=== PATIENT | female | born 1970 | race African-American/Black ===

== ENCOUNTER 2021-07-28 15:37 | Emergency (ER) | payer OTHER, SELFPAY ==
--- NOTE | ~2021-07-28 | XR_ITS ---
EXAMINATION: XR chest 2V DATE: 07/28/2021 17:27 INDICATION: Shortness of breath and cough TECHNIQUE: PA and lateral views of the chest are obtained. COMPARISON: 10/30/2014 FINDINGS: The lungs are free of acute opacities. There is no pleural effusion or pneumothorax. The ca rdiomediastinal silhouette is normal. There is mild thoracic spondylosis. IMPRESSION: 1. No acute cardiopulmonary abnormality. Reviewed, dictated and finalized at location F. TION COUNSELOR
[2021-07-28 16:39] VITALS: BP 136/93; PULSE 99; RESP 16; TEMP 36.3; O2SAT 100
--- NOTE | 2021-07-28 16:59 | ED.URI ---
HPI - URI/Sore Throat General Chief Complaint: Upper Respiratory Infection Stated Complaint: cough/cp Source: patient Mode of arrival: ambulatory Limitations: no limitations History of Present Illness HPI Narrative: 51 y/o female presented for c/o body aches, fatigue, fever, painful cough and sinus congestion worsening over the past week. She is not vaccinated for COVID and endorses several sick contacts with COVID. Has been taking Aleve and Tylenol for symptoms. Denies palpitations, sob, dizziness, nausea, vomiting, diaphoresis. Related Data Allergies Allergy/AdvReac Type Severity Reaction Status Date / Time No Known Allergies Allergy Verified 03/13/17 11:34 Review of Systems Review of Systems: CONSTITUTIONAL: Endorses malaise, chills, sweats, fever. EYES: Denies visual changes, redness, or discharge. ENT: Reports rhinorrhea, congestion, sinus pain, otalgia and sore throat. CARDIOVASCULAR: Denies chest pain, palpitations, or edema. RESPIRATORY: Reports cough, post nasal drainage. Denies dyspnea. GASTROINTESTINAL: Denies abdominal pain, nausea, vomiting, diarrhea SKIN: Denies rash or itching. MUSCULOSKELETAL: Denies myalgia. NEUROLOGIC: Denies headache. [facility] Comments At time of signature, I have reviewed and agree with nursing past medical, surgical, social and family history unless otherwise noted. Please see nursing chart for further information. There is no relevant family history pertinent to the presenting complaint Exam Narrative: GENERAL: Ill-appearing, no acute distress. HEAD: Normocephalic EYES: PERRLA, conjunctivae clear ENT: Mucous membranes moist. TM pearly walker with dull light reflex bilaterally; no tragal tenderness. Oropharynx erythematous without lesions. Tonsils enlarged and without exudate, no drooling, no hoarseness, no trismus, uvula midline. NECK: Supple. No lymphadenopathy CHEST: diminished to auscultation, breath sounds equal. wheeze right posterior lower lobe, no rhonchi, rales, or stridor. No respiratory distress, speaks in full sentences. HEART: Regular rate and rhythm. No murmur heard. SKIN: Warm, dry, no rash. NEURO: Alert and oriented x3. PSYCH: Normal mood and affect Course Course Emergency Course: PCR ordered CXR neg Patient is aware of diagnosis, understands and agrees to treatment plan. Anticipatory guidance given. Patient agrees to follow-up as directed and is aware of reasons to seek care at the emergency department. Portions of this record may have been created with voice recognition software Level of Care: Express Care Visit Vital Signs Vital signs: Vital Signs Temperature 97.3 F L 07/28/21 16:39 Pulse Rate 99 07/28/21 16:39 Respiratory Rate 16 07/28/21 16:39 Blood Pressure 136/93 H 07/28/21 16:39 Pulse Oximetry 100 07/28/21 16:39 Temperature 97.3 F L 07/28/21 16:39 Pulse Rate 99 07/28/21 16:39 Respiratory Rate 16 07/28/21 16:39 Blood Pressure 136/93 H 07/28/21 16:39 Pulse Oximetry 100 07/28/21 16:39 MDM - URI/Sore Throat Differential Diagnosis Differential diagnosis: Likely upper respiratory infection, sinusitis, viral infection and influenza Imaging Data Attestation: I personally reviewed and interpreted this imaging study as follows: My impression: No acute cardiopulmonary abnormality. Radiologist's impression: EXAMINATION: XR chest 2V DATE: 07/28/2021 17:27 INDICATION: Shortness of breath and cough TECHNIQUE: PA and lateral views of the chest are obtained. COMPARISON: 10/30/2014 FINDINGS: The lungs are free of acute opacities. There is no pleural effusion or pneumothorax. The cardiomediastinal silhouette is normal. There is mild thoracic spondylosis. Discharge Plan Discharge Clinical Impression: Viral infection Patient Disposition: Home, Self-Care Condition: Stable Instructions: Antibiotic Form, COVID-19 (Coronavirus Disease 2019) (ED) Additional Instructions: Chest xray was normal You were tested fo
[2021-07-30 21:18] LABS: SARS-CoV-2 RNA PCR Positive
--- NOTE | 2021-08-01 10:54 | PC.NURSE ---
called and requested printed positive covid result and aware will be available at [facility].
== END 2021-07-28 18:23 | disposition home or self-care (01) ==
PROVIDERS: Emergency Provider Nurse Practitioner Family
DX: U07.1 COVID-19 (principal)
CPT/HCPCS: 71046; 99213; C9803; G0463; U0003; U0005

== ENCOUNTER 2021-12-22 15:44 | Outpatient (CLI) | payer OTHER, SELFPAY ==
[2021-12-22 16:17] LABS: Hematocrit 37.6 % (37.0-47.0); Mean Corpuscular HGB Conc 31.9 g/dl (32-36); Mean Corpuscular Hemoglobin 29.1 pg (26-34); Mean Platelet Volume 11.4 fl (7.4-10.4); Platelet Count Result 217 k/mm3 (150-375); Red Blood Count 4.13 M/mm3 (4.2-5.4); Red Cell Distribution Width 13.9 % (11.5-14.5); White Blood Count 4.5 K/mm3 (4.5-10.0)
[2021-12-22 16:25] LABS: Hemoglobin A1C 13.8 % (<5.7)
[2021-12-22 16:30] LABS: Alanine Aminotransferase 19 U/L (6-35); Albumin Level 4.3 g/dL (3.5-5.1); Alkaline Phosphatase 73 U/L (38-126); Anion Gap 5 mmol/L (8-16); Aspartate Amino Transferase 24 U/L (14-36); Bilirubin,Total 0.6 mg/dL (0.2-1.3); Blood Urea Nitrogen 13 mg/dL (7-17); Calcium 8.8 mg/dL (8.4-10.2); Carbon Dioxide 27 mmol/L (22-30); Chloride 96 mmol/L (98-107); Cholesterol 117 mg/dL (0-200); Estimated Glomerular Filt Rate > 60; Glucose 391 mg/dL (65-110); HDL Direct 46 mg/dL; Potassium 4.5 mmol/L (3.4-5.0); Sodium 128 mmol/L (137-145); Triglycerides 157 mg/dL (<150)
[2021-12-22 16:43] LABS: LDL Cholesterol Direct 37 mg/dL
[2021-12-22 17:00] LABS: Thyroid Stimulating Hormone 0.727 uIU/mL (0.465-4.680)
[2021-12-22 17:03] LABS: Vitamin D 25 Hydroxy 47.9 ng/mL
[2021-12-22 17:25] LABS: Vitamin B12 > 1000.0 pg/mL (239-931)
== END 2021-12-22 15:45 | disposition home or self-care (01) ==
LOC: ANHLAB 15:46
PROVIDERS: Visit Provider Obstetrics & Gynecology Gynecology
DX: Z01.419 Encounter for gynecological examination (general) (routine) without abnormal findings (principal)
CPT/HCPCS: 36415; 80053; 80061; 82306; 82607; 83036; 84443; 85027

== ENCOUNTER 2022-04-21 06:34 | Outpatient (RCR) | payer OTHER, SELFPAY | END 2022-07-08 11:34 | disposition home or self-care (01) | LOC: ANHDMC 06:34 | PROVIDERS: Visit Provider Nurse Practitioner | DX: E11.65 Type 2 diabetes mellitus with hyperglycemia (principal) | CPT/HCPCS: 99199 ==

== ENCOUNTER 2022-11-15 17:35 | Emergency (ER) | payer BC, SELFPAY ==
--- NOTE | ~2022-11-15 | CT_ITS ---
EXAMINATION: CT abdomen pelvis w con INDICATION: Epigastric abdominal pain TECHNIQUE: Computed tomographic images of the abdomen and pelvis were obtained after the administrati on of 100 cc of Omnipaque 350 intravenous contrast. The dose-length product (DLP) was 467.82 mGy-cm. Automated exposure control and iterative reconstruction technique were employed. COMPARISON: None available FINDINGS: The lung bases are clear. The heart size is normal. The liver, spleen, pancreas, gallbladde r, and adrenal glands are normal. There is wall thickening of the stomach. Cysts of the kidneys measu re up to 1.4 cm on the right. No pathologically enlarged abdominal or pelvic lymph nodes are identifi ed. No free intraperitoneal gas or evidence of bowel obstruction. There is severe lumbar spondylosis at L5-S1. There is circumferential wall thickening of the urinary bladder. IMPRESSION: 1. Wall thickening of the stomach which could reflect gastritis. 2. Wall thickening of the urinary bladder which could reflect cystitis. Reviewed, dictated and finalized at location F.
[2022-11-15 17:38] VITALS: BP 137/89; PULSE 59; RESP 20; TEMP 37.3; O2SAT 100
--- NOTE | 2022-11-15 17:52 | ED.NAVMDI ---
HPI - Nausea/Vomiting/Diarrhea General Chief complaint: Nausea/Vomiting/Diarrhea Stated complaint: n/v Time Seen by Provider: 11/15/22 17:46 History of Present Illness HPI Narrative: Patient is a 52-year-old female with history of diabetes here via EMS for evaluation of nausea, vomiting and diarrhea over the past day. Patient states that she woke up this morning feeling ill and has had a discomfort in her epigastric region since waking up. She has had numerous episodes of vomiting nonbloody/nonbilious emesis and has been unable to tolerate any p.o. She also reports about 5 episodes of loose watery stools. She does admit to marijuana and alcohol use last evening but denies any history of adverse reaction to either. She is a type II diabetic but does not take any medicines. Denies new or suspicious foods, sick contacts at home. She received 4 of Zofran in route with relief of her nausea. History of appendectomy. Related Data Allergies Allergy/AdvReac Type Severity Reaction Status Date / Time No Known Allergies Allergy Verified 11/15/22 17:44 Review of Systems Review of Systems: Gen.: Reports chills Eyes: Denies eye pain or visual change ENT: Denies congestion Respiratory: Denies shortness of breath or cough CV: Denies chest pain or palpitations GI: Reports abdominal pain, nausea, vomiting and diarrhea denies burning, urgency, frequency or hematuria Musculoskeletal: Denies back pain or muscle pain Neuro: Denies numbness, tingling, weakness or focal weakness Skin: Denies rash Except as documented, all other systems reviewed and negative Exam Narrative: APPEARANCE: Uncomfortable appearing. Head: Normocephalic and atraumatic. EYES: PERRLA/EOMI, conjunctivae clear NOSE: No nasal drainage EARS: External ear normal in appearance THROAT: Oropharynx is clear. Mucous membranes are moist. NECK: Supple. No adenopathy, no masses. RESPIRATORY: Airway patent, respirations nonlabored. Clear to auscultation bilaterally, no rales, rhonchi, wheezing. CARDIOVASCULAR: Regular rate and rhythm without murmurs, rubs, or gallops. ABDOMINAL: There is tenderness to palpation in the epigastric region without rebound tenderness or guarding. Normoactive bowel sounds. Soft, nondistended. MUSCULOSKELETAL: Extremities are warm and well-perfused. Moves all extremities well. No edema. NEURO: Normal speech. No focal neurologic deficits. SKIN: Skin is warm and dry. No rashes. PSYCHIATRIC: Normal affect/mood. Course Vital Signs Vital signs: Vital Signs Temperature 99.1 F 11/15/22 17:38 Pulse Rate 59 L 11/15/22 17:38 Respiratory Rate 20 11/15/22 17:38 Blood Pressure 137/89 11/15/22 17:38 Pulse Oximetry 100 11/15/22 17:38 Oxygen Delivery Room Air 11/15/22 17:38 Temperature 98 F 11/15/22 22:46 Pulse Rate 77 11/15/22 22:46 Respiratory Rate 18 11/15/22 22:46 Blood Pressure 151/79 H 11/15/22 22:46 Pulse Oximetry 99 11/15/22 22:46 Oxygen Delivery Room Air 11/15/22 17:38 MDM - Nausea/Vomiting/Diarrhea MDM Narrative Medical decision making narrative: 52-year-old female with a history of diabetes, not currently on any medicine, here for evaluation of nausea vomiting and abdominal pain over the past day. Admits to alcohol use and marijuana use yesterday. She is uncomfortable in appearance and does have some tenderness to palpation in the epigastric region without rebound or guarding. Her vital signs are normal. Nkepo-ce-maok glucose upon arrival is 248. Patient's basic labs unremarkable. Her bicarb is slightly low at 19.4 but her pH is normal at 7.38. Anion gap is 15. 4+ ketones in the urine, likely due to dehydration. CT abdomen pelvis reveals findings that likely 2/2 gastritis and cystitis. Patient was given fluids, antiemetics and pain medicine with improvement of her symptoms. Able to tolerate p.o. Recheck gkeba-tq-[id number] glucose is 183 upon d/c. Not consistent with DKA or HHS. Will send ho
[2022-11-15 17:54] LABS: Glucose Point of Care 242 mg/dl (65-105)
[2022-11-15] MEDS: FAMOTIDINE 20 MG/2 ML VIAL IV PUSH (18:37)
[2022-11-15] MEDS: SODIUM CHLORIDE 0.9% IV 1,000 ML 999 ML IV CONT ×2 (18:37→20:14)
[2022-11-15] MEDS: diphenhydrAMINE HCl INJ 50 MG/ML VIAL 25 MG IV PUSH (18:46)
[2022-11-15] MEDS: METOCLOPRAMIDE HCL INJ 10 MG/2 ML VIAL IV PUSH (18:46)
[2022-11-15 18:53] VITALS: BP 144/84; PULSE 68; RESP 20; O2SAT 96
[2022-11-15 19:08] LABS: Basophils Absolute Auto 0.1 K/mm3 (0.0-0.1); Basophils Percent Auto 0.8 % (0.2-1.2); Hematocrit 37.3 % (37.0-47.0); Hemoglobin 11.9 g/dL (12.0-15.0); Immature Granulocyte Absolute 0.01 K/mm3 (0.00-0.031); Immature Granulocyte Percent A 0.2 % (0-0.5); Lymphocytes Absolute Auto 0.39 K/mm3 (0.9-3.2); Lymphocytes Percent Auto 5.9 % (18.3-44.2); Mean Corpuscular HGB Conc 31.9 g/dl (32-36); Mean Corpuscular Hemoglobin 30.1 pg (26-34); Mean Corpuscular Volume 94.4 fl (80-100); Monocytes Absolute Auto 0.2 K/mm3 (0.1-0.6); Monocytes Percent Auto 2.6 % (2.6-8.5); Neutrophils Percent Auto 90.5 % (45.5-73.1); Platelet Count Result 223 k/mm3 (150-375); Red Blood Count 3.95 M/mm3 (4.2-5.4); Red Cell Distribution Width 12.6 % (11.5-14.5); White Blood Count 6.6 K/mm3 (4.5-10.0)
[2022-11-15 19:17] LABS: Alanine Aminotransferase 32 U/L (6-35); Albumin Level 4.7 g/dL (3.5-5.1); Alkaline Phosphatase 70 U/L (38-126); Anion Gap 15 mmol/L (8-16); Aspartate Amino Transferase 31 U/L (14-36); Bilirubin,Total 0.7 mg/dL (0.2-1.3); Blood Urea Nitrogen 7 mg/dL (7-17); Calcium 8.8 mg/dL (8.4-10.2); Carbon Dioxide 23 mmol/L (22-30); Chloride 103 mmol/L (98-107); Estimated CRCL calculation 124 ml/min; Estimated Glomerular Filt Rate > 60; Glucose 248 mg/dL (65-110); Lipase 79 U/L (23-300); Potassium 3.6 mmol/L (3.4-5.0); Sodium 141 mmol/L (137-145)
[2022-11-15 20:03] LABS: Appearance Urine Clear (Clear); Bacteria Urine 4+ /hpf; Bilirubin Urine Negative (Negative); Blood Urine Negative (Negative); Color Urine Yellow (Yellow); Glucose Urine UA 2+ mg/dL (Negative); Ketones Urine 4+ mg/dL (Negative); Leukocyte Esterase Ur Negative LEU/UL (Negative); Nitrate Urine Positive (Negative); Non Pathogenic Casts 0-2; Protein Urine Negative (Negative); RBC Urine 0-2 /hpf (0-2); Specific Grav Ur 1.025 (1.001-1.035); Squamous Epithelial Cell Urine None seen /hpf (Few); Urobilinogen Urine 0.2 mg/dL (<2.0); WBC Urine 0-5 /hpf
[2022-11-15 20:05] LABS: Add Urine Microscopic? YES
[2022-11-15] MEDS: ONDANSETRON INJ 4 MG/2 ML VIAL IV PUSH (20:44)
[2022-11-15] MEDS: DICYCLOMINE HCL INJ 20 MG/2 ML VIAL IM (20:44)
[2022-11-15 21:28] VITALS: BP 151/77; PULSE 77; RESP 18; TEMP 36.6; O2SAT 99
[2022-11-15 22:04] LABS: Glucose Point of Care 183 mg/dl (65-105)
[2022-11-15 22:11] LABS: Device ROOM AIR; Fractional Inspired Oxygen 21 %; HCO3 VBG 19.4 mEq/l (24.0-30.0); PCO2 VBG 33.3 mmHg (42.0-48.0); PO2 VBG 145.2 mmHg (35.0-45.0); pH VBG 7.384 (7.300-7.400)
[2022-11-15] MEDS: HALOPERIDOL LACTATE 5 MG/ML VIAL IV PUSH (22:18)
[2022-11-15] MEDS: diphenhydrAMINE HCl INJ 50 MG/ML VIAL 12.5 MG IV PUSH (22:18)
[2022-11-15 22:46] VITALS: BP 151/79; PULSE 77; RESP 18; TEMP 36.6; O2SAT 99
--- NOTE | 2022-11-15 22:46 | PC.NURSE ---
PO challenge started at 2229. 2245: pt tolerated PO challenge. Provider aware. Pt OK to be d/c.
== END 2022-11-15 22:48 | disposition home or self-care (01) ==
PROVIDERS: Emergency Provider Physician Assistant
DX: N39.0 Urinary tract infection, site not specified (principal); K29.70 Gastritis, unspecified, without bleeding
CPT/HCPCS: 36415; 74177; 80053; 81001; 81025; 82803; 82948; 83690; 85025; 96361; 96372; 96374; 96375; 96376; 99284; J0500; J1200; J1630; J2405; J2765; J7030; Q9967

== ENCOUNTER 2023-04-16 17:46 | Emergency (ER) | payer BC, SELFPAY ==
[2023-04-16 17:58] VITALS: BP 124/81; PULSE 74; RESP 16; TEMP 36.6; O2SAT 100
[2023-04-16 17:59] LABS: Glucose Point of Care 436 mg/dl (65-105)
--- NOTE | 2023-04-16 18:06 | ED.GENADULT ---
HPI - General Adult General Chief complaint: Dizziness Stated complaint: blood sugar issue,sick to stomach,blurred vision Time Seen by Provider: 04/16/23 18:00 Source: patient and RN notes reviewed Mode of arrival: ambulatory Limitations: no limitations History of Present Illness HPI narrative: Patient presents today complaining of elevated blood sugar. Reports around noon today her blood sugar was 403. She is also complaining of a one-week history of midline test tightness and constant blurred vision. Associated symptoms include intermittent dizziness, tingling in her left hand, nausea, and 5/10 abdominal pain. Patient does have type 2 diabetes but is not currently take any medication to control it. States she is supposed to be taking metformin, but reports it causes nausea. Patient is continuing to drive with her blurred vision. Related Data Home Medications Medication Instructions Recorded Confirmed No Home Medications 04/16/23 04/16/23 Allergies Allergy/AdvReac Type Severity Reaction Status Date / Time No Known Allergies Allergy Verified 04/16/23 17:50 Review of Systems Review of Systems: CONSTITUTIONAL: Denies body aches, fever, chills, or sweats. EYES: Denies visual changes, redness, or discharge.+ blurred vision ENT: Denies rhinorrhea, congestion, sore throat, or otalgia. CARDIOVASCULAR: Denies palpitations, or edema.+ chest tightness RESPIRATORY: Denies cough or dyspnea. GASTROINTESTINAL: + nausea, abdominal pain GENITOURINARY: Denies dysuria or hematuria. SKIN: Denies rash, itching, or wounds. MUSCULOSKELETAL: Denies back pain, joint pain, or myalgia. NEUROLOGIC: Denies headache, numbness, or weakness.+ tingling in the left hand, intermittent dizziness PSYCH: Denies depression or anxiety. [facility] Past Medical History Medical History (Updated 04/16/23 @ 18:12 by Mabel Cox, [facility], ) Type 2 diabetes mellitus Comments At time of signature, I have reviewed and agree with nursing past medical, surgical, social and family history unless otherwise noted. Please see nursing chart for further information. There is no relevant family history pertinent to the presenting complaint Exam Narrative: GENERAL: Well-appearing, well-nourished, and in no acute distress. HEAD: Normocephalic, atraumatic. EYES: EOMI. PERRL. No redness or drainage. Conjunctivae normal. ENT: Mucous membranes pink and moist. Nares clear. No rhinorrhea. TMs normal bilaterally. Throat normal. Uvula midline. NECK: Normal AROM. Supple. No lymphadenopathy. CHEST: No respiratory distress. Clear to auscultation. HEART: Regular rate and rhythm. No murmur appreciated. Normal peripheral pulses. ABDOMEN: Soft, nondistended, normal active bowel sounds. Generalized abdominal tenderness without rebound or guarding. EXTREMITIES: Normal range of motion. No edema. SKIN: Warm, dry, no rash. Capillary refill normal. Normal skin turgor. NEURO: No focal deficits. Alert and oriented x3. Gait steady. PSYCH: Normal affect. No signs of depression or anxiety. Course Course Level of Care: Express Care Visit Vital Signs Vital signs: Vital Signs Temperature 97.9 F 04/16/23 17:58 Pulse Rate 74 04/16/23 17:58 Respiratory Rate 16 04/16/23 17:58 Blood Pressure 124/81 04/16/23 17:58 Pulse Oximetry 100 04/16/23 17:58 Oxygen Delivery Room Air 04/16/23 17:58 Temperature 97.9 F 04/16/23 17:58 Pulse Rate 74 04/16/23 17:58 Respiratory Rate 16 04/16/23 17:58 Blood Pressure 124/81 04/16/23 17:58 Pulse Oximetry 100 04/16/23 17:58 Oxygen Delivery Room Air 04/16/23 17:58 Reviewed Transfer Transfered to: [facility] Transportation: Other (Private vehicle) Transfer rationale: Hyperglycemia, blurred vision, abdominal pain Accepting physician: Lucrecia Medical Decision Making [facility] Narrative Medical decision making narrative: Report given to Dr. Singer at [facility]. Patient transferred for fu
== END 2023-04-16 18:08 | disposition short-term general hospital (02) ==
PROVIDERS: Emergency Provider Nurse Practitioner; PCP Family Medicine
DX: E11.65 Type 2 diabetes mellitus with hyperglycemia (principal); R10.84 Generalized abdominal pain; H53.8 Other visual disturbances
CPT/HCPCS: 82948; 93005; 99213; G0463

== ENCOUNTER 2023-04-16 18:21 | Emergency (ER) | payer BC, SELFPAY ==
[2023-04-16] VITALS (8 sets, daily range): BP systolic 130–140; BP diastolic 87–96; PULSE 71–91; RESP 13–21; TEMP 36.8; O2SAT 99–100
--- NOTE | ~2023-04-16 | XR_ITS ---
EXAMINATION: XR chest 2V DATE: 04/16/2023 21:13 INDICATION: Chest tightness TECHNIQUE: PA and lateral views of the chest are obtained. COMPARISON: 07/28/2021 FINDINGS: The lungs are free of acute opacities. No pleural effusion or pneumothorax. The cardiomedia stinal silhouette is normal. There is mild thoracic spondylosis. IMPRESSION: 1. No acute cardiopulmonary abnormality. Reviewed, dictated and finalized at location F.
--- NOTE | 2023-04-16 18:30 | ECG_ITS ---
Rate HI QRSd QT QTc P QRS T Severity 71 167 81 361 392 53 62 48 Abnormal ECG SINUS RHYTHM BASELINE ARTIFACT- V2 NORMAL ECG NO PREVIOUS ECG AVAILABLE FOR COMPARISON Electronically Signed On 04-16-2023 20:12:31 CDT by Vivek GIRALDO
[2023-04-16 18:35] LABS: Glucose Point of Care 392 mg/dl (65-105)
--- NOTE | 2023-04-16 20:23 | ED.RECABL ---
HPI - Recheck/Abnormal Lab/Rx General Chief Complaint: Recheck/Abnormal Lab/Rx Stated Complaint: high blood sugar Time Seen by Provider: 04/16/23 20:11 History of Present Illness HPI narrative: Patient is a 52-year-old female presenting with hyperglycemia. States that she has a history of diabetes and was at one time on metformin but it caused a lot of GI distress so she has stopped taking it. She was having some upper abdominal pain today and checked her blood sugar and it was in the 400s so she became concerned. States that its been in the 300s before but she is never seen it in the 400s. States that she has had some intermittent chest tightness as well. She denies any current pain. States that she made an appointment with a new PCP but she cannot get in for several weeks. She was seen in urgent care today who advised that she come to the ER. States that she has noticed increased urinary frequency but no dysuria or hematuria. No numbness or weakness, fevers, headache, shortness of breath, nausea or vomiting, diarrhea, leg swelling. Related Data Allergies Allergy/AdvReac Type Severity Reaction Status Date / Time No Known Allergies Allergy Verified 04/16/23 18:21 Review of Systems Review of Systems: All systems reviewed & are unremarkable except as noted in HPI and below PMFSH Past Medical History Medical History Type 2 diabetes mellitus Exam Narrative: GENERAL: Well-appearing and in no acute distress. Pleasant and cooperative HEAD: Normocephalic, atraumatic. EYES: PERRLA and EOMI. ENT: Mucous membranes moist. NECK: Supple. CHEST: Clear to auscultation. No respiratory distress. HEART: Regular rate and rhythm. ABDOMEN: Soft, nontender, nondistended EXTREMITIES: Normal range of motion. No edema. SKIN: Warm, dry, no rash. NEURO: No focal deficits. Alert and oriented x3. PSYCH: Normal mood and affect. Course Vital Signs Vital signs: Vital Signs Temperature 98.2 F 04/16/23 18:23 Pulse Rate 75 04/16/23 18:23 Respiratory Rate 18 04/16/23 18:23 Blood Pressure 139/87 04/16/23 18:23 Pulse Oximetry 100 04/16/23 18:23 Temperature 98.2 F 04/16/23 18:23 Pulse Rate 71 04/16/23 22:14 Respiratory Rate 17 04/16/23 22:14 Blood Pressure 140/96 H 04/16/23 22:14 Pulse Oximetry 100 04/16/23 22:14 Oxygen Delivery Room Air 04/16/23 19:50 MDM - Recheck/Abnormal Lab/Rx MDM Narrative Medical decision making narrative: 52-year-old female presenting with hyperglycemia. Vitals are stable. Exam unremarkable. EKG per my interpretation shows normal sinus rhythm, normal axis and intervals, no ST elevations or depressions. Blood work with mild leukopenia. Glucose is in the 300s. There is no evidence of DKA. UA is concerning for UTI. Patient was given a dose of Keflex. Feel that the patient is safe for outpatient management. She has an appointment with primary care in the next few weeks. Strongly advised that she keep this appointment. Appropriate return precautions given. Patient voiced understanding and is agreeable with plan. Discharged in stable condition. Differential Diagnosis Differential diagnosis: Likely other (Hyperglycemia, UTI, pneumonia, dehydration, NICKY) Medical Records Attestation: I reviewed the patient's medical records. Lab Data Attestation: I reviewed the patient's lab results. 04/16/23 20:44 04/16/23 20:45 Labs: Lab Results 04/16/23 04/16/23 04/16/23 Range/Units 18:26 20:44 20:45 WBC 2.7 L (4.5-10.0) K/mm3 RBC 4.43 (4.2-5.4) M/mm3 Hgb 14.3 (12.0-15.0) g/dL Hct 42.1 (37.0-47.0) % MCV 95.0 (80-100) fl MCH 32.3 (26-34) pg MCHC 34.0 (32-36) g/dl RDW 11.7 (11.5-14.5) % Plt Count 189 (150-375) k/mm3 MPV 12.0 H (7.4-10.4) fl Immature Gran % (Auto) 0.0 (0-0.5) % Neut % (Auto) 56.9 (45.5-73.1) % Lymph % (Au
[2023-04-16 20:51] LABS: Basophils Percent Auto 1.5 % (0.2-1.2); Eosinophils Absolute Auto 0.1 K/mm3 (0-0.3); Eosinophils Percent Auto 4.4 % (0-4.4); Hematocrit 42.1 % (37.0-47.0); Hemoglobin 14.3 g/dL (12.0-15.0); Lymphocytes Absolute Auto 0.83 K/mm3 (0.9-3.2); Lymphocytes Percent Auto 30.6 % (18.3-44.2); Mean Corpuscular Hemoglobin 32.3 pg (26-34); Monocytes Absolute Auto 0.2 K/mm3 (0.1-0.6); Monocytes Percent Auto 6.6 % (2.6-8.5); Neutrophils Absolute Auto 1.5 K/mm3 (1.3-6.7); Neutrophils Percent Auto 56.9 % (45.5-73.1); Platelet Count Result 189 k/mm3 (150-375); Red Blood Count 4.43 M/mm3 (4.2-5.4); Red Cell Distribution Width 11.7 % (11.5-14.5); White Blood Count 2.7 K/mm3 (4.5-10.0)
[2023-04-16] MEDS: SODIUM CHLORIDE 0.9% IV 1,000 ML 999 ML IV CONT (20:55)
[2023-04-16 21:00] LABS: Fractional Inspired Oxygen 21 %; HCO3 VBG 28.1 mEq/l (24.0-30.0); PCO2 VBG 42.5 mmHg (42.0-48.0)
[2023-04-16 21:01] LABS: Device ROOM AIR; INR 1.1; Prothrombin Time 14.3 Seconds (11.1-14.7); pH VBG 7.438 (7.300-7.400)
[2023-04-16 21:03] LABS: Alanine Aminotransferase 26 U/L (6-35); Albumin Level 4.5 g/dL (3.5-5.1); Alkaline Phosphatase 76 U/L (38-126); Anion Gap 7 mmol/L (8-16); Aspartate Amino Transferase 28 U/L (14-36); Bilirubin,Total 0.7 mg/dL (0.2-1.3); Blood Urea Nitrogen 8 mg/dL (7-17); Calcium 9.6 mg/dL (8.4-10.2); Carbon Dioxide 32 mmol/L (22-30); Chloride 97 mmol/L (98-107); Estimated CRCL calculation 105 ml/min; Estimated Glomerular Filt Rate > 60; Glucose 380 mg/dL (65-110); Lipase 175 U/L (23-300); Magnesium 2.1 mg/dL (1.6-2.3); Potassium 4.2 mmol/L (3.4-5.0); Sodium 136 mmol/L (137-145)
[2023-04-16 21:07] LABS: Beta-Hydroxybutyrate/Acetoacetate 0.24 mmol/L (0.02-0.27)
[2023-04-16 21:08] LABS: Appearance Urine Cloudy (Clear); Bacteria Urine 4+ /hpf; Bilirubin Urine Negative (Negative); Blood Urine Negative (Negative); Color Urine Yellow (Yellow); Glucose Urine UA 3+ mg/dL (Negative); Ketones Urine Trace mg/dL (Negative); Leukocyte Esterase Ur Negative LEU/UL (Negative); Nitrate Urine Positive (Negative); Non Pathogenic Casts 0-2; Protein Urine Negative (Negative); RBC Urine 0-2 /hpf (0-2); Squamous Epithelial Cell Urine None seen /hpf (Few); Urobilinogen Urine 0.2 mg/dL (<2.0); WBC Urine 0-5 /hpf; pH Urine 5.5 (5.0-9.0)
[2023-04-16 21:16] LABS: Troponin I < 0.012 ng/mL (0.000-0.034)
[2023-04-16 21:23] LABS: Specific Grav Ur 1.041 (1.001-1.035)
[2023-04-16 21:24] LABS: Add Urine Microscopic? YES
[2023-04-16] MEDS: CEPHALEXIN 500 MG CAPSULE PO (21:40)
== END 2023-04-16 22:16 | disposition home or self-care (01) ==
PROVIDERS: Emergency Provider Emergency Medicine; PCP Family Medicine
DX: E11.65 Type 2 diabetes mellitus with hyperglycemia (principal); N39.0 Urinary tract infection, site not specified; T38.3X6A Underdosing of insulin and oral hypoglycemic [antidiabetic] drugs, initial encounter; Z91.128 Patient's intentional underdosing of medication regimen for other reason
CPT/HCPCS: 36415; 71046; 80053; 81001; 82010; 82803; 82948; 83690; 83735; 84484; 85025; 85610; 85730; 93005; 96360; 99284; A9270; J7030

== ENCOUNTER 2023-05-07 10:44 | Outpatient (CLI) | payer BC, SELFPAY ==
[2023-05-07 11:23] LABS: Basophils Percent Auto 1.5 % (0.2-1.2); Eosinophils Absolute Auto 0.1 K/mm3 (0-0.3); Eosinophils Percent Auto 4.4 % (0-4.4); Hematocrit 42.4 % (37.0-47.0); Hemoglobin 14.3 g/dL (12.0-15.0); Immature Granulocyte Absolute 0.01 K/mm3 (0.00-0.031); Immature Granulocyte Percent A 0.4 % (0-0.5); Lymphocytes Absolute Auto 0.79 K/mm3 (0.9-3.2); Lymphocytes Percent Auto 29.3 % (18.3-44.2); Mean Corpuscular HGB Conc 33.7 g/dl (32-36); Mean Corpuscular Hemoglobin 31.9 pg (26-34); Mean Corpuscular Volume 94.6 fl (80-100); Mean Platelet Volume 11.8 fl (7.4-10.4); Monocytes Absolute Auto 0.2 K/mm3 (0.1-0.6); Monocytes Percent Auto 5.6 % (2.6-8.5); Neutrophils Absolute Auto 1.6 K/mm3 (1.3-6.7); Neutrophils Percent Auto 58.8 % (45.5-73.1); Platelet Count Result 224 k/mm3 (150-375); Red Blood Count 4.48 M/mm3 (4.2-5.4); Red Cell Distribution Width 11.6 % (11.5-14.5); White Blood Count 2.7 K/mm3 (4.5-10.0)
[2023-05-07 11:38] LABS: Alanine Aminotransferase 25 U/L (6-35); Albumin Level 4.4 g/dL (3.5-5.1); Alkaline Phosphatase 79 U/L (38-126); Anion Gap 6 mmol/L (8-16); Aspartate Amino Transferase 26 U/L (14-36); Bilirubin,Total 0.7 mg/dL (0.2-1.3); Blood Urea Nitrogen 10 mg/dL (7-17); Calcium 9.2 mg/dL (8.4-10.2); Carbon Dioxide 28 mmol/L (22-30); Chloride 100 mmol/L (98-107); Cholesterol 134 mg/dL (0-200); Estimated Glomerular Filt Rate > 60; Glucose 345 mg/dL (65-110); HDL Direct 44 mg/dL; Potassium 4.5 mmol/L (3.4-5.0); Sodium 134 mmol/L (137-145); Triglycerides 89 mg/dL (<150)
[2023-05-07 11:48] LABS: LDL Cholesterol Direct 60 mg/dL
[2023-05-07 11:57] LABS: Creatinine Urine 107.6 mg/dL
[2023-05-07 12:02] LABS: MALB Creatinine Ratio 7.1 mg/g (0-30); Microalbumin Urine Random 7.6 mg/L (0-16.7)
[2023-05-07 12:36] LABS: Hemoglobin A1C > 14.0 % (<5.7)
== END 2023-05-07 10:45 | disposition home or self-care (01) ==
LOC: ANHLAB 10:45
PROVIDERS: PCP Family Medicine; Visit Provider Family Medicine
DX: E03.9 Hypothyroidism, unspecified (principal); E78.2 Mixed hyperlipidemia; E11.319 Type 2 diabetes mellitus with unspecified diabetic retinopathy without macular edema
CPT/HCPCS: 36415; 80053; 80061; 82043; 83036; 84443; 85025

== ENCOUNTER 2023-06-02 08:15 | Outpatient (RCR) | payer BC, SELFPAY ==
[2023-06-02 08:21] VITALS: BMI 25.7
== END 2023-08-23 08:46 | disposition home or self-care (01) ==
LOC: ANHDMC 08:15
PROVIDERS: PCP Family Medicine; Visit Provider Family Medicine
DX: E11.42 Type 2 diabetes mellitus with diabetic polyneuropathy (principal); E11.319 Type 2 diabetes mellitus with unspecified diabetic retinopathy without macular edema; H40.9 Unspecified glaucoma; Z71.89 Other specified counseling; Z71.3 Dietary counseling and surveillance
CPT/HCPCS: 97802; G0108

== ENCOUNTER 2023-06-18 14:57 | Outpatient (CLI) | payer BC, SELFPAY ==
[2023-06-18 15:29] LABS: Hematocrit 40.3 % (37.0-47.0); Hemoglobin 13.1 g/dL (12.0-15.0); Mean Corpuscular HGB Conc 32.5 g/dl (32-36); Mean Corpuscular Hemoglobin 32.1 pg (26-34); Mean Corpuscular Volume 98.8 fl (80-100); Platelet Count Result 206 k/mm3 (150-375); Red Blood Count 4.08 M/mm3 (4.2-5.4); Red Cell Distribution Width 12.4 % (11.5-14.5)
[2023-06-18 15:46] LABS: Alanine Aminotransferase 23 U/L (6-35); Albumin Level 4.3 g/dL (3.5-5.1); Alkaline Phosphatase 69 U/L (38-126); Anion Gap 7 mmol/L (8-16); Aspartate Amino Transferase 31 U/L (14-36); Bilirubin,Total 0.5 mg/dL (0.2-1.3); Blood Urea Nitrogen 7 mg/dL (7-17); CRP < 0.5 mg/dL (<1.0); Calcium 9.1 mg/dL (8.4-10.2); Carbon Dioxide 27 mmol/L (22-30); Chloride 103 mmol/L (98-107); Cholesterol 142 mg/dL (0-200); Estimated Glomerular Filt Rate > 60; Glucose 125 mg/dL (65-110); HDL Direct 64 mg/dL; Potassium 4.1 mmol/L (3.4-5.0); Sodium 137 mmol/L (137-145); Triglycerides 84 mg/dL (<150)
[2023-06-18 15:55] LABS: LDL Cholesterol Direct 47 mg/dL
[2023-06-18 16:33] LABS: White Blood Count 1.9 K/mm3 (4.5-10.0)
[2023-06-18 16:38] LABS: Eosinophils Absolute Manual 0.01 K/mm3 (0.02-0.5); Eosinophils Percent Manual 1 % (0-4); Lymphocytes Absolute Manual 0.57 K/mm3 (1.1-4.5); Monocytes Absolute Manual 0.55 K/mm3 (0.1-0.90); Monocytes Percent Manual 29 % (3-9); Neutrophils Percent Manual 40 % (46-73); Platelet Estimate Adequate (Adequate); Total Cells Counted 100
[2023-06-18 16:39] LABS: Schistocytes None Seen (NORMAL)
[2023-06-18 17:03] LABS: Erythrocyte Sedimentation Rate 21 mm/hr (0-20)
[2023-06-21 16:17] LABS: Rapid Plasma Reagin Non-Reactive (NonReactive)
[2023-06-22 11:10] LABS: Angiotensin Converting Enzyme 62 U/L (9-67)
== END 2023-06-18 14:58 | disposition home or self-care (01) ==
PROVIDERS: PCP Family Medicine
DX: H49.20 Sixth [abducent] nerve palsy, unspecified eye (principal)
CPT/HCPCS: 36415; 80053; 80061; 82164; 85025; 85652; 86140; 86592

== ENCOUNTER 2023-08-17 11:36 | Outpatient (CLI) | payer BC, SELFPAY ==
[2023-08-17 12:13] LABS: Basophils Absolute Auto 0.1 K/mm3 (0.0-0.1); Basophils Percent Auto 1.8 % (0.2-1.2); Eosinophils Absolute Auto 0.3 K/mm3 (0-0.3); Eosinophils Percent Auto 9.4 % (0-4.4); Hematocrit 38.8 % (37.0-47.0); Hemoglobin 12.9 g/dL (12.0-15.0); Immature Granulocyte Absolute 0.01 K/mm3 (0.00-0.031); Immature Granulocyte Percent A 0.4 % (0-0.5); Lymphocytes Absolute Auto 0.74 K/mm3 (0.9-3.2); Lymphocytes Percent Auto 26.6 % (18.3-44.2); Mean Corpuscular HGB Conc 33.2 g/dl (32-36); Mean Corpuscular Hemoglobin 32.3 pg (26-34); Mean Corpuscular Volume 97.2 fl (80-100); Mean Platelet Volume 10.5 fl (7.4-10.4); Monocytes Absolute Auto 0.2 K/mm3 (0.1-0.6); Monocytes Percent Auto 6.8 % (2.6-8.5); Neutrophils Absolute Auto 1.5 K/mm3 (1.3-6.7); Platelet Count Result 218 k/mm3 (150-375); Red Blood Count 3.99 M/mm3 (4.2-5.4); Red Cell Distribution Width 11.9 % (11.5-14.5); White Blood Count 2.8 K/mm3 (4.5-10.0)
[2023-08-17 12:22] LABS: Alanine Aminotransferase 24 U/L (6-35); Albumin Level 4.1 g/dL (3.5-5.1); Alkaline Phosphatase 58 U/L (38-126); Anion Gap 5 mmol/L (8-16); Aspartate Amino Transferase 35 U/L (14-36); Bilirubin,Total 0.5 mg/dL (0.2-1.3); Blood Urea Nitrogen 7 mg/dL (7-17); Carbon Dioxide 30 mmol/L (22-30); Chloride 103 mmol/L (98-107); Estimated Glomerular Filt Rate > 60; Glucose 88 mg/dL (65-110); Sodium 138 mmol/L (137-145)
[2023-08-17 12:32] LABS: Hemoglobin A1C 7.1 % (<5.7)
[2023-08-17 12:53] LABS: Creatinine Urine 74.5 mg/dL
[2023-08-17 13:09] LABS: MALB Creatinine Ratio < 8.1 mg/g (0-30); Microalbumin Urine Random < 6.0 mg/L (0-16.7)
== END 2023-08-17 11:37 | disposition home or self-care (01) ==
LOC: ANHLAB 11:37
PROVIDERS: PCP Family Medicine; Visit Provider Family Medicine
DX: E11.9 Type 2 diabetes mellitus without complications (principal); I10 Essential (primary) hypertension
CPT/HCPCS: 36415; 80053; 82043; 83036; 85025

== ENCOUNTER 2023-09-10 12:31 | Outpatient (CLI) | payer BC, SELFPAY ==
--- NOTE | ~2023-09-10 | XR_ITS ---
EXAMINATION: XR hip LT 2V w AP pelvis INDICATION: Left hip pain TECHNIQUE: AP view of the pelvis and two views of the left hip are obtained. COMPARISON: CT, 11/15/2022 FINDINGS: Bone alignment is normal. There is no fracture. Phleboliths are noted in the abdomen and pe lvis. There is severe lower lumbar spondylosis. IMPRESSION: 1. No acute osseous abnormality. Reviewed, dictated and finalized at location B. TENDER
== END 2023-09-10 12:32 | disposition home or self-care (01) ==
LOC: ANHIMG 12:33
PROVIDERS: PCP Family Medicine; Visit Provider Family Medicine
DX: M25.552 Pain in left hip (principal)
CPT/HCPCS: 73502

== ENCOUNTER 2023-09-30 15:26 | Outpatient (CLI) | payer BC, SELFPAY ==
--- NOTE | ~2023-09-30 | US_ITS ---
EXAMINATION: US venous doppler [facility] DATE: 09/30/2023 15:50 INDICATION: Left lower limb pain. TECHNIQUE: Grayscale ultrasound images without and with compression and Doppler ultrasound images of the left lower extremity veins were obtained. COMPARISON: None. FINDINGS: The visualized portions of left common femoral vein, profunda (deep) femoral vein, femoral vein, popl iteal vein, peroneal veins, posterior tibial veins, and greater saphenous vein outflow are patent. IMPRESSION: 1. No deep venous thrombosis. Reviewed, dictated and finalized at location A.
== END 2023-09-30 15:27 | disposition home or self-care (01) ==
LOC: ANHIMG 15:29
PROVIDERS: PCP Family Medicine; Visit Provider Family Medicine
DX: M79.606 Pain in leg, unspecified (principal)
CPT/HCPCS: 93971

== ENCOUNTER 2024-08-25 14:12 | Outpatient (CLI) | payer BC, SELFPAY ==
--- NOTE | ~2024-08-25 | XR_ITS ---
CHEST RADIOGRAPH, PA AND LATERAL CLINICAL HISTORY: R05.9 - Cough, unspecified . COMPARISON: 04/16/2023 TECHNIQUE: PA and lateral views of the chest. FINDINGS The cardiomediastinal silhouette is unremarkable. The lungs are clear. Visualized osseous structures and soft tissues are unremarkable. IMPRESSION: No focal infiltrate or effusion. Reviewed, dictated and finalized at location A. STMENT CLERK
--- OUTSIDE RECORDS SUMMARY | 2024-08-25 14:18 | XMS_ITS | Clinical Summary ---
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 Gender Identity Not on file Sexual Orientation Not on file Plan of Treatment Health Maintenance Due Date Last Done Comments DTAP/TDAP/TD VACCINES (1 - Tdap) 1990 HEPATITIS B VACCINES (1 of 3 - 19+ 3-dose series) 1990 CERVICAL CANCER SCREENING 2001 BREAST CANCER SCREENING 2011 COLORECTAL SCREENING 2016 Colorectal Cancer Screening 2016 FIT-DNA Q 3 years 2016 FIT/FOBT Q 1 year 2016 Flex Sig/CT Colonography Q 5 years 2016 ZOSTER VACCINE (1 of 2) 2021 INFLUENZA VACCINE (#1) 2024 PNEUMOCOCCAL VACCINE 0-64 YEARS Aged Out No longer eligible based on patient's age to complete this topic Insurance [facility] BLUE ACCESS CHOICE BC TRADITIONAL Care Teams Milk Processing Worker Relationship Specialty Start Date End Date Liz Clifford MD [address] [facility] [address] [place] [address] PCP - General Family Practice 07/06/23
--- OUTSIDE RECORDS SUMMARY | 2024-08-25 14:18 | XMS_ITS | Clinical Summary ---
Author Organization [facility] Address [facility] [place] [address] Care Team Providers Care Foreclosure Home Inspector Name Role Phone Mark Lombardi DO Primary Care Provider [phone] Social History Tobacco Use Types Packs/Day Years Used Date Smoking Tobacco: Never Assessed Comments Unknown Sex and Gender Information Value Date Recorded Sex Assigned at Not on file Legal Sex Female 9:22 PM CDT Gender Identity Not on file Sexual Orientation Not on file Last Filed Vital Signs Vital Sign Reading Time Taken Comments Blood Pressure 148/90 01/04/2015 9:53 AM CDT Pulse - - Temperature - - Respiratory Rate - - Oxygen Saturation - - Inhaled Oxygen Concentration - - Weight 94.8 kg (209 lb) 01/04/2015 9:53 AM CDT Height 180.3 cm (5' 11 ) 04/12/2012 3:13 PM CDT Body Mass Index 29.15 04/12/2012 3:13 PM CDT Plan of Treatment Health Maintenance Due Date Last Done Comments Cervical Cancer Screening Pa p Smear (Age 30 to 64) Every 3 Years 1971 Colorectal Cancer Screening Colonoscopy (10 Years) 1971 Annual Physical 1974 Hepatitis C 1989 DTaP, Tdap and Td Vaccines ( 1 - Tdap) 1990 Hepatitis B Vaccines (1 of 3 - 19+ 3-dose series) 1990 Cervical Cancer Screening Pa p with HPV Testing (Age 30 to 64) Every 5 Years 2001 Cervical Cancer Screening with HPV 2001 Mammogram Screening 2011 Zoster Vaccines (1 of 2) 2021 COVID-19 Vaccine (2023-2 5 season) 2024 Influenza Adult (#1) 2024 Meningococcal B Vaccine Aged Out No l onger eligible based on patient's age to complete this topic Meningococcal Vaccine Aged Out No amanda aydee eligible based on patient's age to complete this topic Pneumococcal Vaccine: Pediat rics (0 to 5 Years) and At-Risk Patients (6 to 64 Years) Aged Out No longer eligible b ased on patient's age to complete this topic RSV Immunizations Under 20 Months Aged Out No longer eligible based on patient's age to complete this topic Care Teams Foreclosure Home Inspector Relationship Specialty Start Date End Date Mark Lombardi DO PCP - General 06/15/12
--- OUTSIDE RECORDS SUMMARY | 2024-08-25 14:18 | XMS_ITS | Clinical Summary ---
Author Organization [facility] Care Team Providers Care Hypnotherapist Name Role Phone Unavailable Primary Care Provider Unavailabl e Social History Tobacco Use Types Packs/Day Years Used Date Smoking Tobacco: Never Assessed Comments Unknown Sex and Gender Information Value Date Recorded Sex Assigned at Not on file Legal Sex Female 12:59 PM CDT Gender Identity Not on file Sexual Orientation Not on file Plan of Treatment Health Maintenance Due Date Last Done Comments Hepatitis C Virus (HCV) Screening 1971 TdaP Immunization 1971 Hepatitis B Immunization (1 of 3 - 19+ 3-dose series) 1990 Pap Smear 1992 Cervical Cancer Screening (CCS) 2001 HPV/Cotest 2001 Colonoscopy 2016 Colorectal Cancer Screening 2016 Cologuard 2021 Immunochemical Fecal Occult Blood 2021 Mammogram 2021 Pneumococcal Immunization (5 0+ years) (1 of 1 - PCV) 2021 Zoster Immunization (1 of 2) 2021 Influenza Immunization (#1) 2024 SARS-COV-2 Immunization ( - 2023- season) 2024 Respiratory Syncytial Virus (RSV) Immunization (Adult) (1 - 1-dose 75+ series) 2046 Meningococcal Immunization (ACWY) Aged Out No longer eligible based on patient's age to complete this topic Pneumococcal Immunization Combined Aged Out No longer eligible based on patient's age to complete this topic Rotavirus Immunization Aged Out No lo nger eligible based on patient's age to complete this topic
== END 2024-08-25 14:13 | disposition home or self-care (01) ==
PROVIDERS: PCP Family Medicine; Visit Provider Physician Assistant
DX: R05.9 Cough, unspecified (principal)
CPT/HCPCS: 71046

== ENCOUNTER 2024-10-26 06:27 | Emergency (ER) | payer BC, SELFPAY ==
--- NOTE | ~2024-10-26 | CT_ITS ---
CT of the Abdomen and Pelvis: Indication: Abdominal pain Technique: 2.5 mm axial scans were obtained through the abdomen and pelvis following intravenous adm inistration of 100 cc of Omnipaque 350. Dose reduction technique was used on this scan by utilizing a utomated exposure control and iterative reconstruction technique. The dose-length product (DLP) was 6 37.79 mGy-cm. COMPARISON: 11/15/2022 Findings: Scans through the lung bases are unremarkable. The liver, spleen, pancreas, gallbladder, adrenals and kidneys are within normal limits. No evidence of aortic aneurysm. No lymphadenopathy. No bowel obstruction or bowel wall thickening. There is no evidence to suggest acute appendicitis. Images through the pelvis were performed. Urinary bladder unremarkable. No adnexal mass seen. No asci augustus. Impression: No significant abnormalities seen. Reviewed, dictated and finalized at [facility]. Impression: No significant abnormalities seen.
--- OUTSIDE RECORDS SUMMARY | 2024-10-26 06:29 | XMS_ITS | Clinical Summary ---
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 Gender Identity Not on file Sexual Orientation Not on file Plan of Treatment Health Maintenance Due Date Last Done Comments DTAP/TDAP/TD VACCINES (1 - Tdap) 1990 HEPATITIS B VACCINES (1 of 3 - 19+ 3-dose series) 1990 HPV/Cotest (21-29) 1992 PAP SMEAR 1992 CERVICAL CANCER SCREENING 2001 HPV/Cotest (30-65) 2001 PAP SMEAR 2001 BREAST CANCER SCREENING 2011 COLORECTAL SCREENING 2016 Colorectal Cancer Screening 2016 FIT-DNA Q 3 years 2016 FIT/FOBT Q 1 year 2016 Flex Sig/CT Colonography Q 5 years 2016 ZOSTER VACCINE (1 of 2) 2021 INFLUENZA VACCINE (#1) 2024 PNEUMOCOCCAL VACCINE 0-49 YEARS Aged Out No longer eligible based on patient's age to complete this topic Insurance [facility] BLUE ACCESS CHOICE Care Teams Network Professional Relationship Specialty Start Date End Date Liz Clifford MD [address] [facility] [address] [place] [address] PCP - General Family Practice 07/06/23
--- OUTSIDE RECORDS SUMMARY | 2024-10-26 06:29 | XMS_ITS | Clinical Summary ---
Author Organization [facility] Address [address] [place] [address] Care Team Providers Care Veterinary Virologist Name Role Phone Mark Lombardi DO Primary Care Provider Social History Tobacco Use Types Packs/Day Years [...] 2021 COVID-19 Vaccine (2023-2 5 season) 2024 Meningococcal B Vaccine Aged Out No [...] age to complete this topic Care Teams Veterinary Virologist Relationship Specialty Start Date End Date Mark Lombardi DO PCP - General 06/15/12
--- OUTSIDE RECORDS SUMMARY | 2024-10-26 06:29 | XMS_ITS | Clinical Summary ---
Author Organization [facility] Care Team Providers Care Burr Bench Hand Name Role Phone Unavailable Primary Care Provider [...]
[2024-10-26 06:42] VITALS: BP 147/70; PULSE 81; RESP 15; TEMP 37.3; O2SAT 100
--- OUTSIDE RECORDS SUMMARY | 2024-10-26 07:10 | XMS_ITS | Clinical Summary ---
Author Organization [facility] Address [address] [place] [address] Care Team Providers Care Contract Admin Name Role Phone Mark Lombardi DO Primary [...] age to complete this topic Care Teams Contract Admin Relationship Specialty Start Date End Date Mark Lombardi DO PCP - General 06/15/12
--- OUTSIDE RECORDS SUMMARY | 2024-10-26 07:10 | XMS_ITS | Clinical Summary ---
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 BLUE ACCESS CHOICE Care Teams Hospice Plan Administrator Relationship Specialty Start Date End Date Liz Clifford MD [address] [facility] [address] [place] [address] PCP - General Family Practice 07/06/23
--- OUTSIDE RECORDS SUMMARY | 2024-10-26 07:11 | XMS_ITS | Clinical Summary ---
Author Organization [facility] Care Team Providers Care Diesel Engine Tester Name Role Phone Unavailable Primary Care Provider [...]
[2024-10-26 07:33] LABS: Basophils Absolute Auto 0.1 K/mm3 (0.0-0.1); Hemoglobin 12.9 g/dL (12.0-15.0); Immature Granulocyte Absolute 0.01 K/mm3 (0.00-0.031); Immature Granulocyte Percent A 0.3 % (0-0.5); Lymphocytes Absolute Auto 0.55 K/mm3 (0.9-3.2); Mean Corpuscular HGB Conc 32.3 g/dl (32-36); Mean Corpuscular Hemoglobin 31.1 pg (26-34); Mean Corpuscular Volume 96.4 fl (80-100); Mean Platelet Volume 11.4 fl (7.4-10.4); Monocytes Absolute Auto 0.2 K/mm3 (0.1-0.6); Monocytes Percent Auto 6.2 % (2.6-8.5); Neutrophils Absolute Auto 2.2 K/mm3 (1.3-6.7); Neutrophils Percent Auto 72.5 % (45.5-73.1); Platelet Count Result 187 k/mm3 (150-375); Red Blood Count 4.15 M/mm3 (4.2-5.4); Red Cell Distribution Width 11.9 % (11.5-14.5); White Blood Count 3.1 K/mm3 (4.5-10.0)
[2024-10-26] MEDS: FAMOTIDINE 20 MG/2 ML VIAL IV PUSH (07:41)
[2024-10-26] MEDS: ONDANSETRON INJ 4 MG/2 ML VIAL IV PUSH (07:41)
[2024-10-26] MEDS: SODIUM CHLORIDE 0.9% IV 2,000 ML 999 ML IV CONT (07:41)
[2024-10-26 07:48] LABS: Alanine Aminotransferase 25 U/L (6-35); Albumin Level 4.5 g/dL (3.5-5.1); Alkaline Phosphatase 68 U/L (38-126); Anion Gap 10 mmol/L (4-12); Aspartate Amino Transferase 26 U/L (14-36); Bilirubin,Total 0.7 mg/dL (0.2-1.3); Blood Urea Nitrogen 11 mg/dL (7-17); Carbon Dioxide 23 mmol/L (22-30); Chloride 105 mmol/L (98-107); Estimated CRCL calculation 101 ml/min; Estimated Glomerular Filt Rate > 60; Glucose 180 mg/dL (65-110); Lipase 132 U/L (23-300); Potassium 4.1 mmol/L (3.4-5.0); Sodium 138 mmol/L (137-145)
[2024-10-26 07:48] LABS: BEDSIDEPREGUCG Negative (Negative)
[2024-10-26] MEDS: HALOPERIDOL LACTATE 5 MG/ML VIAL IM (07:49)
--- NOTE | 2024-10-26 07:51 | ED.GENADULT ---
HPI - General Adult General Chief complaint: Abdominal Pain Stated complaint: Nausea/ Vomiting Time Seen by Provider: 10/26/24 06:58 History of Present Illness HPI narrative: This is a 54-year-old female presenting with nausea and vomiting. Patient says her symptoms started at 1:00 a.m.. There is showed a seated with some aching pain in the left side of her abdomen. She has not had any diarrhea. She denies fevers chills chest pain or difficulty breathing. No urinary symptoms. Patient is a marijuana user. Related Data Home Medications ?Medication ?Instructions ?Recorded ?Confirmed ?Last Taken ?Type budesonide 160 mcg-glycopyr 9 2 inh inhalation BID 08/25/24 08/25/24 Unknown History mcg-formot 4.8 mcg/actuation HFA inhaler (Breztri [employer]) Allergies Allergy/AdvReac Type Severity Reaction Status Date / Time No Known Allergies Allergy Verified 10/26/24 07:36 COUNT INCLUDES THE [facility] Past Medical History Medical History Abducens (sixth) nerve palsy Gastroparesis diabeticorum Elevated BP without diagnosis of hypertension Glaucoma (increased eye pressure) Uterine fibroid Type 2 diabetes mellitus Surgical History Surgical History H/O myomectomy Family History Family History Father Bone cancer Hypertension Cerebrovascular accident Mother Cerebrovascular accident Social History Social History Social History: Smoking status: Never smoker Second hand tobacco smoke exposure: No Alcohol intake: current Alcohol use details: Pt only drink on the weekends. She has around 6 drinks. Substance use: current Substance use type: marijuana Last use: Pt only smokes Marijuana on the weekends. 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 EYES: EOMI, NOSE: Atraumatic NECK: Trachea midline RESPIRATORY: No increased rate of breathing CTAB CARDIOVASCULAR: RRR, no peripheral edema ABDOMINAL: Soft nontender no guarding or rebound, no CVA tenderness MUSCULOSKELETAl: No obvious deformities NEURO: Alert. Moving 4/4 extremities SKIN:: Warm, dry. Normal color PSYCHIATRIC: Normal affect Course Vital Signs Vital signs: Vital Signs Temperature 99.1 F 10/26/24 06:42 Pulse Rate 81 10/26/24 06:42 Respiratory Rate 15 10/26/24 06:42 Blood Pressure 147/70 H 10/26/24 06:42 Pulse Oximetry 100 10/26/24 06:42 Temperature 99.1 F 10/26/24 06:42 Pulse Rate 82 10/26/24 08:40 Respiratory Rate 18 10/26/24 08:40 Blood Pressure 149/91 H 10/26/24 08:40 Pulse Oximetry 100 10/26/24 06:42 Medical Decision Making MDM Narrative Medical decision making narrative: -Course: 54-year-old female presenting with nausea vomiting. CT scan unremarkable. Laboratory workup significant for cannabinoid use. Patient was treated for cannabinoid hyperemesis with improvement in symptoms. She is now resting comfortably in bed. She is tolerating p.o.. She will be discharged home with antiemetics. -DDX includes but is not limited to: Gastroenteritis, food poisoning, cannabinoid hyperemesis Vital Signs Vital Signs: Vital Signs Temperature 99.1 F 10/26/24 06:42 Pulse Rate 81 10/26/24 06:42 Respiratory Rate 15 10/26/24 06:42 Blood Pressure 147/70 H 10/26/24 06:42 Pulse Oximetry 100 10/26/24 06:42 Temperature 99.1 F 10/26/24 06:42 Pulse Rate 82 10/26/24 08:40 Respiratory Rate 18 10/26/24 08:40 Blood Pressure 149/91 H 10/26/24 08:40 Pulse Oximetry 100 10/26/24 06:42 Lab Data 10/26/24 07:29 10/26/24 07:29 Labs: Lab Results 10/26/24 10/26/24 10/26/24 Range/Units 07:29 07:42 07:46 WBC 3.1 L (4.5-10.0) K/mm3 RBC 4.15 L (4.2-5.4) M/mm3 Hgb 12.9 (12.0-15.0) g/dL Hct 40.0 (37.0-47.0) % MCV 96.4 (80-100) fl MCH 31.1 (26-34) pg MCHC 32.3 (32-36) g/dl RDW 11.9 (11.5-14.5) % Plt Count 187 (150-375) k/mm3 MPV 11.4 H (7.4-10.4) fl Immature Gran % (Auto) 0.3 (0-0.5) % Neut % (Auto) 72.5 (45.5-73.1) % Lymph % (Auto) 18.0 L (18.3-44.2) % [place] % (Auto) 6.2 (2.6-8.5) % Eos % (Auto) 1.0 (0-4.4) % Baso % (Auto) 2.0 H (0.2-1.2) % Lymph # (Auto) 0.55 L (0.9-3.2) K/mm3 [place] # (Auto) 0.2 (0.1-0.6) K/mm3 Eos # (Auto) 0.0 (0-0.3) K/mm3 Baso # (Auto) 0.1 (0.0-0.1) K/mm3 Abs Immat Gran (auto) 0.01 (0.00-0.031) K/mm3 Absolute Neuts (auto) 2.2 (1.3-6.7) K/mm3 Absolute Nucleated RBC 0.000 (0.0-0.012) K/mm3 Nucleated RBC % 0.0 (0.0-0.2) % Sodium 138 (137-145) mmol/L Potassium 4.1 (3.4-5.0) mmol/L Chloride 105 (98-107) mmol/L Carbon Dioxide 23 (22-30) mmol/L Anion Gap 10 (4-12) mmol/L BUN 11 (7-17) mg/dL Creatinine 0.70 (0.7-1.0) mg/dL Estim Creat Clear Calc 101 ml/min Estimated GFR > 60 (59 - ) Glucose 180 H (65-110) mg/dL Calcium 9.0 (8.4-10.2) mg/dL Total Bilirubin 0.7 (0.2-1.3) mg/dL AST 26 (14-36) U/L ALT 25 (6-35) U/L Alkaline Phosphatase 68 (38-126) U/L Total Protein 8.0 (6.3-8.2) g/dL Albumin 4.5 (3.5-5.1) g/dL Lipase 132 (23-300) U/L Urine Color Yellow (Yellow) Urine Appearance Turbid H (Clear) Urine pH 8.5 (5.0-9.0) Ur Specific [place] 1.023 (1.001-1.035) Urine Protein Trace (Negative) mg/dL Urine Glucose (UA) Negative (Negative) mg/dL Urine Ketones 2+ H (Negative) mg/dL Ur Blood (Man) Negative (Negative) Urine Nitrate Negative (Negative) Urine Bilirubin Negative (Negative) Urine Urobilinogen 1.0 (<2.0) mg/dL Leukocyte Esterase Rfl Negative (Negative) [place]KE[place]HA/UL Urine RBC 0-2 (0-2) /hpf Urine WBC 0-5 (0-3) /hpf Ur Squamous Epith Cells Occasional (Few) /hpf Urine Bacteria None seen /hpf Urine Casts 0-2 POC Urine HCG, Qual Negative (Negative) Urine Opiates Screen Negative (Negative) Urine Methadone Screen Negative (Negative) Ur Barbiturates Screen Negative (Negative) Ur Phencyclidine Scrn Negative (Negative) Ur Amphetamine Screen Negative (Negative) U Benzodiazepines Scrn Negative (Negative) Urine Cocaine Screen Negative (Negative) U Cannabinoids Screen Positive A (Negative) Discharge Plan Discharge Clinical Impression: Nausea & vomiting Patient Disposition: Home Condition: Stable Instructions: Antibiotic Form, Acute Nausea and Vomiting (DC) Additional Instructions: Please use Zofran for nausea. Please follow-up your primary care physician. Please refrain from marijuana use as that may be causing her symptoms. Please return to ED if you develop fevers severe abdominal pain intractable nausea vomiting. Patient Language: Hebrew Prescriptions: New ondansetron 4 mg tablet,disintegrating 4 mg PO Q8H PRN (Reason: nausea and vomiting) Qty: 30 0RF No Action gabapentin 100 mg capsule 100 mg PO TID Qty: 90 0RF Breztri Aerosphere 160-9-4.8 mcg/actuation HFA aerosol inhaler 2 inh inhalation BID Rx Instructions: samples provided azithromycin [Zithromax Z-Christopher] 250 mg tablet See Rx Instructions PO .COMPLEX Qty: 6 0RF Rx Instructions: For 250 mg dose pack: take 500 mg today (day 1), then 250 mg for 4 days (days 2-5) PO codeine-guaifenesin 10-100 mg/5 mL liquid 5 ml PO ONCE PRN (Reason: cough) Qty: 118 0RF (DME) pen needle, diabetic [BD Julita 2nd Gen Pen Needle] 32 gauge x 5/32 needle See Rx Instructions .ROUTE .COMPLEX Qty: 100 0RF Dose Instruction: USE TO INJECT ONCE DAILY Rx Instructions: USE TO INJECT ONCE DAILY benzonatate 100 mg capsule 100 - 200 mg PO TID PRN (Reason: cough) Qty: 60 0RF Rx Instructions: Take 1 to 2 caps (100 to 200 mg) TID prn for cough. Max 600 mg/day Toujeo Max U-300 SoloStar 300 unit/mL (3 mL) insulin pen See Rx Instructions .ROUTE .COMPLEX Qty: 6 0RF Dose Instruction: INJECT 20 UNITS UNDER THE SKIN DAILY. INCREASE BY 4 UNITS EVERY 3 DAYS TO KEEP FASTING BLOOD GLUCOSE UNDER 140. Rx Instructions: INJECT 20 UNITS UNDER THE SKIN DAILY. INCREASE BY 4 UNITS EVERY 3 DAYS TO KEEP FASTING BLOOD GLUCOSE UNDER 140. MAX DAILY DOSE 40 (DME) FreeStyle Simone 3 Sensor Device See Rx Instructions .ROUTE .COMPLEX Qty: 1 4RF Dose Instruction: CHANGE EVERY 14 DAYS Rx Instructions: CHANGE EVERY 14 DAYS Follow-up/Referrals: Jaswinder Guidry MD [Primary Care Provider] -
[2024-10-26 07:57] LABS: Add Urine Microscopic? YES; Appearance Urine Turbid (Clear); Bacteria Urine None Seen /hpf; Bilirubin Urine Negative (Negative); Blood Urine Negative (Negative); Color Urine Yellow (Yellow); Glucose Urine UA Negative (Negative); Ketones Urine 2+ mg/dL (Negative); Leukocyte Esterase Ur Negative LEU/UL (Negative); Nitrate Urine Negative (Negative); Non Pathogenic Casts 0-2; Protein Urine Trace mg/dL (Negative); RBC Urine 0-2 /hpf (0-2); Specific Grav Ur 1.023 (1.001-1.035); Squamous Epithelial Cell Urine Occasional /hpf (Few); WBC Urine 0-5 /hpf (0-3); pH Urine 8.5 (5.0-9.0)
[2024-10-26 08:40] VITALS: BP 149/91; PULSE 82; RESP 18
[2024-10-26 08:45] LABS: Amphetamine Screen Urine Negative (Negative); Barbiturate Screen Urine Negative (Negative); Benzodiazepines Screen Urine Negative (Negative); Cannabinoid Screen Urine Positive (Negative); Cocaine Screen Urine Negative (Negative); Methadone Screen Urine Negative (Negative); Opiate Screen Urine Negative (Negative); Phencyclidine Screen Urine Negative (Negative)
[2024-10-26] MEDS: diphenhydrAMINE HCl INJ 50 MG/ML VIAL 25 MG IV PUSH (10:21)
[2024-10-26] MEDS: PROCHLORPERAZINE EDISYLATE 10 MG/2 ML VIAL IM (10:21)
== END 2024-10-26 11:50 | disposition home or self-care (01) ==
PROVIDERS: Emergency Medicine; Emergency Provider Emergency Medicine; PCP Family Medicine
DX: R11.2 Nausea with vomiting, unspecified (principal); E11.39 Type 2 diabetes mellitus with other diabetic ophthalmic complication; H42 Glaucoma in diseases classified elsewhere; E11.43 Type 2 diabetes mellitus with diabetic autonomic (poly)neuropathy; K31.84 Gastroparesis; Z79.85 Long-term (current) use of injectable non-insulin antidiabetic drugs
CPT/HCPCS: 36415; 74177; 80053; 80307; 81001; 81025; 83690; 85025; 96361; 96372; 96374; 96375; 99284; J0780; J1200; J1630; J2405; J7030; Q9967